=== PATIENT | male | born 1990 | race Caucasian/White ===

== ENCOUNTER 2024-07-09 14:47 | Emergency (ER) | payer SELFPAY ==
--- NOTE | ~2024-07-09 | XR_ITS ---
EXAMINATION: XR SHOULDER, RIGHT CLINICAL INFORMATION: Patient states pain in right shoulder neck and back, no known injury COMPARISON: None available. TECHNIQUE: AP external rotation, Grashey, scapular Y, and axillary views of the right shoulder. FINDINGS: The bones and soft tissues are normal. No fracture. Glenohumeral and acromioclavicular alignment is anatomic with normal joint space. No abnormal soft tissue calcifications. XR/XR shoulder RT min 2V IMPRESSION: Normal right shoulder. Electronically signed by: Gita Millan MD 07/09/2024 06:35 PM EDT
--- NOTE | ~2024-07-09 | XR_ITS ---
EXAMINATION: XR THORACIC SPINE CLINICAL INFORMATION: Back pain, no known injury COMPARISON: None available. TECHNIQUE: 3 views of the thoracic spine were obtained. FINDINGS: There is no fracture or bone destruction seen and the vertebral alignment is normal. There is no disc space narrowing. There is no abnormality of the paraspinal soft tissues. XR/XR thoracic spine 2V IMPRESSION: Unremarkable examination. Electronically signed by: Gita Millan MD 07/09/2024 06:39 PM EDT
--- NOTE | ~2024-07-09 | XR_ITS ---
EXAMINATION: XR cervical spine 3V CLINICAL INFORMATION: Pain , no known injury COMPARISON: None TECHNIQUE: 5 views of the cervical spine were obtained. FINDINGS: The cervical spine is visualized to the level of C7 on the lateral view. Vertebral body alignment is maintained. Vertebral body heights are maintained. Lateral masses of C1 are well aligned on C2. Visualized portion of the dens is intact. Intervertebral disc spaces are preserved. No prevertebral soft tissue swelling. XR/XR cervical spine 3V IMPRESSION: No significant spondylosis of the cervical spine. Electronically signed by: Gita Millan MD 07/09/2024 06:38 PM EDT
[2024-07-09 15:14] VITALS: BP 121/78; PULSE 88; RESP 18; TEMP 36.4; O2SAT 98; BMI 23.7
--- NOTE | 2024-07-09 16:53 | ED.EXTPRO ---
HPI - Extremity Problem General Chief complaint: Extremity Injury, Upper Stated complaint: r shoulder inj Time Seen by Provider: 07/09/24 16:46 Source: patient Mode of arrival: ambulatory Limitations: no limitations History of Present Illness ED Provider: DR. Galdamez HPI Narrative: 33-year-old male came in for evaluation of neck pain radiating to the right shoulder blade. Symptoms started 2 days ago, no strenuous activity, no heavy lifting, no injury, no falls, patient woke up from sleep 2 days ago with pain in the neck and upper back radiating to the right shoulder bleed has been constant since it started days ago, no weakness, no numbness. No fever, no chills, no photophobia, no headache. Related Data Previous Rx's ?Medication ?Instructions ?Recorded cyclobenzaprine 10 mg tablet 10 mg PO TID PRN muscle spasm #14 07/09/24 tabs ibuprofen 600 mg tablet 600 mg PO Q8H PRN pain #20 tabs 07/09/24 Allergies Allergy/AdvReac Type Severity Reaction Status Date / Time No Known Allergies Allergy Verified 07/09/24 15:17 Review of Systems Review of Systems: All other systems are reviewed and are negative Constitutional: Reports as per HPI and Reports no additional constitutional complaints Eyes: Reports as per HPI and Reports no additional eye complaints Reports system reviewed and no additional complaints, except as documented Cardiovascular: Reports as per HPI and Reports no additional cardiovascular complaints Respiratory: Reports as per HPI and Reports no additional respiratory complaints Gastrointestinal: Reports as per HPI and Reports no additional gastrointestinal complaints Genitourinary: Reports no additional female genitourinary complaints Musculoskeletal: Reports no additional musculoskeletal complaints Skin/Breast: Reports system reviewed and no additional complaints, except as docu Psychiatric: Reports no additional psychiatric complaints Endocrine: Reports no additional endocrine complaints Hematologic/Lymphatic: Reports no additional hematologic/lymphatic complaints Allergic/Immunologic: Reports no additional allergic/immunologic complaints Reports system reviewed and no additional complaints, except as documented and Reports Abnormal speech present [facility] Social History Social History Advance Directives: No Advance Directives Information Provided: No Physical Exam Vital Signs: Vital Signs: Last Vital Signs Temp 97.5 F 07/09/24 15:14 Pulse 88 07/09/24 15:14 Resp 18 07/09/24 15:14 BP 121/78 07/09/24 15:14 Pulse Ox 98 07/09/24 15:14 O2 Del Method Room Air 07/09/24 15:14 BMI result Body Mass Index 23.7 Vital signs have been reviewed and appear to be correct. Blood pressure elevated. Heart rate normal. Respiratory rate normal. Temperature normal. Oxygen saturation normal. Appearance: Alert. Oriented X3. No acute distress. Head: Normal external exam. Normocephalic. Atraumatic. No [place] signs noted. No raccoon eyes noted Eyes: No photophobia, PERRLA. EOMI. Conjunctiva and sclera normal. Eyelids normal. ENT: TM's Normal. Pharynx normal. Uvula midline. Moist mucous membranes. No trismus noted. No drooling noted. No muffled voice noted. Neck: Normal inspection. Neck supple. FROM. No adenopathy. Thyroid Normal. No meningeal signs. No neck mass noted. CVS: Normal heart rate and rhythm. Heart sound normal. No murmurs noted. Pulses normal throughout. Respiratory: No respiratory distress. Painless inspiration. Breath sounds normal. No wheezes/rales/rhonchi noted. Chest nontender. No accessory muscle usage noted or decreased air movement noted. Abdomen: Soft and nontender. Bowel sounds normal in all 4 quadrants. No distention noted. No organomegaly noted. No visible injury noted. Back: No CVA tenderness. Full range of motion noted. Skin: Skin warm and dry. Normal skin color. Normal skin turgor. No rashes/lesions/lacerations noted. Extremities: Right upper extremities held in adduction position with tender abduction, increased pain radiating to the right shoulder bleed with turning the head to the right or left, intact motor/sensation night upper extremities, neurovascularly intact with cap refill less than 2 seconds, intact right radial artery pulsation. Neuro: Oriented X 3. Cranial nerve exam: II-XII are grossly intact No motor deficit. No sensory deficit. Reflexes normal. Course Reevaluation(s) Reevaluation #1: 33-year-old male came in with lower neck pain radiates to the right shoulder bleed likely cervical radiculopathy, patient feels better with muscle relaxant and pain medication. As instructed patient be discharged on NSAIDs, muscle relaxant, rest, heating pads if needed. Time: 18:45 Medications Administered Discontinued Medications Generic Name Dose Route Start Last Admin Trade Name Prafulq PRN Reason Stop Dose Admin Diazepam 2 mg 07/09/24 16:50 07/09/24 17:22 Diazepam 2 Mg Tablet PO 07/09/24 16:51 2 mg ONCE ONE Administration Hydromorphone HCl 1 mg 07/09/24 16:50 07/09/24 17:22 Hydromorphone Hcl 1 Mg/Ml Syringe IM 07/09/24 16:51 1 mg ONCE ONE Administration Protocol Ketorolac Tromethamine 60 mg 07/09/24 16:50 07/09/24 17:22 Ketorolac Tromethamine 60 Mg/2 Ml Vial IM 07/09/24 16:51 60 mg ONCE ONE Administration Medical Decision Making Differential Diagnosis Differential Diagnoses: The differential diagnosis associated with the presentation includes (Cervical radiculopathy, myofascial pain, cervical/thoracic spine arthritis versus fracture, right shoulder sprain.) Admission/Observation Consideration of admission/observation: Escalation of care including admission/observation considered Independent Interpretation I performed an independent interpretation of an: Plain X-Ray (Cervical/thoracic/right shoulder x-rays: No acute pathology.) Radiology Impression Discussion of test interpretation with radiology: I have reviewed the radiologist's reading. Discharge Plan Discharge Clinical Impression: Cervical radiculopathy Patient Disposition: Home, Self-Care Instructions: Cervical Radiculopathy (ED) Additional Instructions: Rest, heating pad if needed, take the medicine as prescribed, refrain from heavy lifting pushing or strenuous activity. Seek immediate medical attention any numbness or weakness of the right arm. Prescriptions: New ibuprofen 600 mg tablet 600 mg PO Q8H PRN (Reason: pain) Qty: 20 0RF cyclobenzaprine 10 mg tablet 10 mg PO TID PRN (Reason: muscle spasm) Qty: 14 0RF Print Language: Amharic
[2024-07-09] MEDS: Ketorolac Tromethamine 60 MG/2 ML VIAL IM (17:22)
[2024-07-09] MEDS: HYDROmorphone HCl 1 MG/ML SYRINGE IM (17:22)
[2024-07-09] MEDS: diazePAM 2 MG TABLET PO (17:22)
[2024-07-09 18:52] VITALS: BP 121/78; PULSE 88; RESP 18; TEMP 36.4; O2SAT 98
== END 2024-07-09 18:55 | disposition home or self-care (01) ==
PROVIDERS: Emergency Provider Emergency Medicine
DX: M54.12 Radiculopathy, cervical region (principal); M54.2 Cervicalgia
CPT/HCPCS: 72040; 72070; 73030; 96372; 99283; 99284; J1170; J1885